=== PATIENT | female | born 1950 | race Hispanic/Latino ===

== ENCOUNTER 2019-03-12 10:01 | Emergency (ER) | payer OTHER ==
[~2019-03-12] VITALS: Ht 154.9 cm; Wt 80.9 kg
[2019-03-12] MEDS ORDERED: NS 500 ML IV ONE (11:00)
[2019-03-12 11:37] LABS: BASO % 0.4 % (0.0-1.0); EOS # 0.2 10^3/uL (0.0-0.5); EOS % 1.8 % (0.0-3.0); HEMATOCRIT 41.3 % (36.0-47.0); LYMPH # 2.9 10^3/uL (1.5-5.0); LYMPH % 35.4 % (24.0-44.0); MEAN CORPUSCULAR HGB CONC 33.9 g/dl (32.0-36.5); MEAN CORPUSCULAR VOLUME 88.6 fl (80.0-96.0); MONO # 0.6 10^3/uL (0.0-0.8); MONO % 6.9 % (0.0-5.0); NEUTROPHILS # 4.5 10^3/uL (1.5-8.5); NEUTROPHILS % 55.1 % (36.0-66.0); PLATELET COUNT, AUTOMATED 207 10^3/uL (150-450); RED BLOOD COUNT 4.66 10^6/uL (4.00-5.40); WHITE BLOOD COUNT 8.2 10^3/uL (4.0-10.0)
[2019-03-12] MEDS ORDERED: KETOROLAC 30 MG/ML VIAL (J1885) IV ONE (12:00)
[2019-03-12] MEDS ORDERED: ISOVUE-370 76% 100ML VIAL (Q9967) As Ordered ONE (12:04)
[2019-03-12 12:26] LABS: ALBUMIN 3.8 GM/DL (3.2-5.2); BILIRUBIN,DIRECT 0.1 MG/DL (0.0-0.2); BILIRUBIN,TOTAL 0.4 MG/DL (0.2-1.0); TOTAL PROTEIN 7.4 GM/DL (6.4-8.2)
--- NOTE | 2019-03-12 12:35 | REP ---
Clinical: Acute left-sided abdominal pain. Technique: Axial contrast enhanced images from the lung bases to the pubic symphysis using 100 ml Isovue 370 intravenous contrast material. Comparison: None. Findings: Lung bases are clear. Visualized heart and pericardium normal. Liver, spleen, pancreas, gallbladder, bilateral adrenal glands and kidneys are normal. The enteric system is without obstruction or acute inflammatory process. There is a moderate the spigelian hernia along the lower left anterior abdominal wall just lateral to the rectus muscle containing fat and nonobstructed loops of small bowel which may be related to the patient's symptoms. Pelvis demonstrates normal bladder and evidence of prior hysterectomy. No ascites. No free air. No adenopathy. Abdominal aorta without aneurysm or dissection. Skeletal structures without focal osseous abnormality. Impression: 1. Moderate left-sided spigelian hernia containing fat and nonobstructed loops of small bowel possibly related to patient's symptoms. Electronically Signed by Noble Riojas MD 03/12/2019 12:27 P
[2019-03-12 13:40] VITALS: BP 170/80
[2019-03-12] MEDS ORDERED: MIRA3350 PO (14:12)
== END 2019-03-12 15:03 | disposition home or self-care (01) ==
LOC: M ED 10:01
DX: K46.9 Unspecified abdominal hernia without obstruction or gangrene (principal)
CPT/HCPCS: 74177; 80047; 80076; 83605; 83690; 85025; 96361; 96374; 99284; J1885; Q9967